=== PATIENT | male | born 1970 | race Caucasian/White ===

== ENCOUNTER → 2020-09-13 | Outpatient (CLI) | payer OTHER ==
[~2020-09-13] MED LIST: EFFEXOR 5050 MG/1 T1 PO; FLEXERIL PO; LISINOPRIL20 MG PO; NORCO 5-325 TA1 EAC1 PO; OMEPRAZOLE 20 M20 M1 PO; TOPAMAX 100 MG100 MG PO
--- NOTE | 2020-10-02 19:06 | SLEEP ---
[address] [address] SLEEP STUDY REPORT Name: KLARISSA STARK Room: [facility]#: [id number] Admission: 09/13/20 Attend Phys: Dagoberto Michel MD Discharge: Date of : 72 Report #: [id number] THIS REPORT FOR: cc: Lamberto Dockery MD, Bryan C. MD ~ Dylon Acosta MD This study has been reviewed in its entirety by a board certified sleep specialist DATE OF SERVICE: 09/13/2020 SLEEP STUDY INDICATION FOR SLEEP STUDY: Obstructive sleep apnea. Sleep study is performed to reestablish diagnosis and for positive airway pressure titration. INTERPRETATION: Total duration of the study is 433 minutes out of which he was asleep for 365 minutes with an overall sleep efficiency of 85%. Sleep onset was rapid occurring within a minute of lying down in bed. REM onset occurred 146 minutes after sleep onset. N1 sleep duration is 14%, N2 duration is 58%, N3 duration is 15% and REM duration is 13%. This is a split night sleep study. During initial part of the sleep study, the patient was not on positive airway pressure therapy for 183 minutes. This included 156 minutes of sleep time, which in turn included 7 minutes of REM sleep. We did record multiple sleep related respiratory events at this point, these included 8 obstructive apneas in addition to 66 hypopneas and 17 respiratory effort related arousals with an overall apnea-hypopnea index of 28.6. Body position data indicates the patient was observed asleep in the supine position for 155 minutes. This is essentially the entire duration of time he was asleep during the diagnostic portion of the sleep study. Mean heart rate was 81. Periodic limb movement index is normal at 5.0. Arousal index at this point was 28.2, which is mildly elevated. We did record multiple desaturations. Overall, the patient spent 8.7 minutes below an O2 saturation of 90%, 2.4 minutes were spent below an O2 saturation of 88%. The patient was subsequently placed on CPAP therapy and was observed on CPAP therapy for 250 minutes, this included 210 minutes of sleep time, which in turn included 42 minutes of REM sleep. Mean heart rate was now 77. Periodic limb movement index only mildly elevated to 11.7 with a periodic limb movement index with arousals normal at 0.6. Arousal index improved and was now only minimally elevated to 13.7. [place] [address] SLEEP STUDY REPORT Name: MIKLARISSA Room: [facility]#: [id number] Admission: 09/13/20 Attend Phys: Dagoberto Michel MD Discharge: Date of : 72 Report #: [id number] Review of the CPAP titration indicates the patient was initially placed on a CPAP of 9 cm of water. This was subsequently increased to 11 cm of water. There is marked improvement in the patient's sleep-disordered respirations with the administration of a CPAP of 11 cm of water, apnea-hypopnea index improved to 1.2. There are some desaturations at 90%, O2 saturation is maintained at or above this level. There are some rare central events which are still noted. IMPRESSION: 1. Obstructive sleep apnea with an apnea-hypopnea index of 28.6 with mild nocturnal hypoxemia. The patient spent 8.7 minutes below an O2 saturation of 90% during the diagnostic portion of the sleep study. 2. There is marked improvement noted in the patient's sleep apnea with the administration of a CPAP of 11 cm of water, there are some rare central events and desaturation was still occur, but O2 saturation is maintained at or above 90%. An apnea-hypopnea index is now normal at 1.2. RECOMMENDATIONS: 1. Clinical correlation is advised. I understand that the patient has previously been on a CPAP. During this sleep study, we have documented that the patient had marked improvement in his sleep disordered respirations with the administration of a CPAP of 11 cm of water. An Eson nasal medium mask was used during this sleep study. Recommend continuing with CPAP therapy. 2. The patient's current CPAP pressures as well as compliance with CPAP are not known to me. In case the patient is still symptomatic despite use of CPAP at around the same CPAP pressure, then in case further improvement in his daytime sleepiness is clinically desired, then switching him over to a BiPAP to eliminate the residual central events and desaturations can be a consideration. Clinical correlation is advised. This entire sleep study was reviewed by board certified sleep physician. <ELECTRONICALLY SIGNED> By: Dylon Acosta MD 10/02/20 [id number] Acosta MD /nt
== END ==
LOC: M.SLEEPLAB 19:36
PROVIDERS: ATTEND Orthopaedic Surgery
DX: G47.33 Obstructive sleep apnea (adult) (pediatric) (principal)